=== PATIENT | female | born 1955 | race Caucasian/White ===

== ENCOUNTER 2023-03-11 11:10 | Inpatient (IN) | payer OTHER ==
[~2023-03-11] VITALS: Ht 165.1 cm; Wt 79.5 kg
[2023-03-11] MEDS ORDERED: IPRATROPIUM BROM 0.5 MG/2.5ML INH SOL NEB ONE ×3 (11:30→12:30)
[2023-03-11] MEDS ORDERED: ALBUTEROL SULF 2.5 MG/0.5ML(0.5%) NEB SOLN NEB ONE ×3 (11:30→12:30)
[2023-03-11] MEDS ORDERED: DexAMETHasone SOD PHOS 10MG/1ML VIAL INJ IM ONE (11:45)
[2023-03-11] MEDS: MAGNESIUM SULFATE 1GM/100ML 100 ML IV SCH ×2 (12:09→12:56)
[2023-03-11 12:13] LABS: Basophils # (auto) 0 10 ^3/uL (0-0.2); Eosinophils # (auto) 0 10 ^3/uL (0-0.8); Hematocrit 53.4 % (36.0-46.0); Lymphocytes # (auto) 0.5 10 ^3/uL (0.4-5.4); Lymphocytes % (auto) 7.5 % (10.0-50.0); Monocytes # (auto) 0.9 10 ^3/uL (0-1.3)
[2023-03-11 12:17] LABS: Basophils % (auto) 0.2 % (0.0-2.0); Hemoglobin 16.3 g/dL (12.2-16.2); Mean Corpuscular Hemoglobin 28.7 pg (28.0-32.0); Mean Corpuscular Hgb Conc. 30.5 g/dL (32.0-36.0); Monocytes % (auto) 12.9 % (0.0-12.0); Neutrophils # (auto) 5.7 10 ^3/uL (1.6-8.6); Neutrophils % (auto) 79.4 % (37.0-80.0); Nucleated Red Blood Cells % 0.5 %; Red Blood Cells 5.68 10^6/uL (4.0-5.20); Red Cell Distribution Width 16.8 % (11.8-14.3); White Blood Cell 7.2 10^3/uL (4.4-10.8)
[2023-03-11] MEDS ORDERED: SODIUM CHLORIDE 0.9% 500 ML IV ONE (12:30)
[2023-03-11 12:32] LABS: Potassium 4.8 mmol/L (3.5-5.1)
[2023-03-11 12:40] LABS: Albumin 3.4 g/dL (3.4-5.0); BUN/Creatinine Ratio 29.7 (10.0-20.0); Bilirubin, Total 1.7 mg/dL (0.2-1.0); Calcium 8.6 mg/dL (8.5-10.1); Magnesium 2.8 mg/dL (1.6-2.6); Total Protein 6.3 g/dL (6.4-8.2)
[2023-03-11 13:01] LABS: INR 1.19 (0.9-1.15); Partial Thromboplastin Time 24.2 SEC (24.5-34.5)
[2023-03-11] MEDS ORDERED: METOPROLOL TARTRATE 1MG/1ML-5ML VIAL IV ONE ×2 (13:26→13:30)
[2023-03-11] MEDS ORDERED: ASPirin 81 mg TAB PO ONE (13:45)
[2023-03-11] MEDS ORDERED: levoFLOXacin 500MG 100 ML IV ONE (13:45)
[2023-03-11] MEDS ORDERED: dilTIAZem 25 MG/5 ML VIAL IV ONE ×3 (13:45→14:30)
[2023-03-11] MEDS ORDERED: ADENOSINE 6 MG/2 ML INJ IV ONE ×2 (14:15)
[2023-03-11] MEDS ORDERED: METOPROLOL SUCCINATE XL 50 MG TAB PO ONE (14:15)
[2023-03-11] MEDS ORDERED: FUROSEMIDE 40 MG/4 ML VIAL IV ONE (14:15)
[2023-03-11] MEDS ORDERED: IOHEXOL 350 MG/ML 100ML IJ ONE (14:26)
[2023-03-11] MEDS ORDERED: ENOXAPARIN SOD 80 MG/0.8ML SYRINGE SC ONE (14:45)
[2023-03-11] MEDS ORDERED: MORPHINE SULFATE INJ 2 MG/ml SYRG IV PRN ×2 (14:45→19:45)
[2023-03-11] MEDS ORDERED: NITROGLYCERIN 0.4 MG SL TAB SL PRN (14:45)
[2023-03-11] MEDS ORDERED: NICOTINE 14 MG/24HR TOPICAL PATCH TD ONE (14:45)
[2023-03-11] MEDS ORDERED: dilTIAZem 125mg/125ml BAG KIT 125 ML IV ONE (14:45)
[2023-03-11 15:05] LABS: Cholesterol 110 mg/dL (< 200)
[2023-03-11 15:07] LABS: HDL Cholesterol 43 mg/dL (40-59); LDL Cholesterol 51 mg/dL (< 100); Triglycerides 121 mg/dL (< 150)
[2023-03-11 15:33] LABS: Urine Bacteria FEW /hpf (None Seen); Urine Blood TRACE /uL (Negative); Urine Hyaline Cast FEW /lpf (0 - 2); Urine Mucus FEW (None Seen); Urine WBC 2 /hpf (0 - 5)
[2023-03-11 16:06] LABS: Alcohol, Urine < 3.0 mg/dL (0-10); Amphetamine Screen, Urine NEGATIVE (NEGATIVE); Barbiturate Scree,Urine NEGATIVE (NEGATIVE); Benzodiazephine Screen, Urine NEGATIVE (NEGATIVE); Cannabinoid Screen, Urine NEGATIVE (NEGATIVE); Cocaine Screen, Urine NEGATIVE (NEGATIVE); Opiate Scree,Urine NEGATIVE (NEGATIVE); Phencyclidine Screen, Urine NEGATIVE (NEGATIVE)
[2023-03-11] MEDS ORDERED: LORazepam 2MG/ML-1ML VIAL IV ONE ×2 (16:15→17:00)
[2023-03-11] MEDS ORDERED: AMIODARONE HCL 150 MG in D5W 5% 100 ML IV ONE (17:00)
[2023-03-11] MEDS ORDERED: AMIODARONE 450mg/250ml AE 250 ML IV SCH ×2 (17:15→23:15)
[2023-03-11] MEDS ORDERED: FLUMAZENIL 0.1 MG/ML INJ 10ML MDV IV ONE ×3 (17:33→18:30)
[2023-03-11] MEDS: FUROSEMIDE 20 MG/2 ML VIAL IV SCH (18:00)
[2023-03-11 21:00] VITALS: BP 106/73
[2023-03-11 22:07] VITALS: BP 95/63
[2023-03-11] MEDS ORDERED: LORazepam 2MG/ML-1ML VIAL IV PRN (22:15)
[2023-03-11] MEDS ORDERED: ACETAMINOPHEN 325 MG TAB PO PRN (22:15)
[2023-03-11] MEDS ORDERED: HYDROcodone-ACET 5/325MG TAB PO PRN (22:15)
[2023-03-11] MEDS ORDERED: DOCUSATE SOD 100 MG CAP PO PRN (22:15)
[2023-03-11] MEDS ORDERED: ONDANSETRON HCL 4 MG/2 ML VIAL IV PRN (22:15)
[2023-03-11 23:38] VITALS: BP 95/63
[2023-03-11] MEDS: METOPROLOL TARTRATE 25 MG TAB PO SCH (23:54)
[2023-03-11] MEDS: ENOXAPARIN SOD 80 MG/0.8ML SYRINGE SC SCH (23:56)
[2023-03-12] VITALS: BP 100/60
[2023-03-12 02:10] VITALS: BP 107/70
[2023-03-12 03:55] VITALS: BP 99/74
[2023-03-12] MEDS ORDERED: IBUPROFEN 600 MG TAB PO PRN (04:45)
[2023-03-12] MEDS: SODIUM CHLOR 0.9% PF (SALINE LOCK) 10ML VIAL/SYR IV SCH ×3 (06:17→22:47)
[2023-03-12 06:30] VITALS: BP 108/60
[2023-03-12] MEDS: FUROSEMIDE 20 MG/2 ML VIAL IV SCH ×2 (06:35→17:36)
[2023-03-12] MEDS: ENOXAPARIN SOD 80 MG/0.8ML SYRINGE SC SCH ×3 (07:57→22:52)
[2023-03-12] MEDS: FAMOTIDINE (10MG/ML) 2ML VL IV SCH (07:57)
[2023-03-12] MEDS: ASPirin 81 mg TAB PO SCH (07:57)
[2023-03-12] MEDS: METOPROLOL TARTRATE 25 MG TAB PO SCH ×2 (07:58→22:00)
[2023-03-12] MEDS: GENTAMICIN OPTH sol 0.3% 5ml EACHEYE SCH ×4 (09:45→22:55)
[2023-03-12] MEDS ORDERED: FUROSEMIDE 40 MG/4 ML VIAL IV ONE (10:30)
[2023-03-12 11:15] LABS: Basophils # (auto) 0 10 ^3/uL (0-0.2); Eosinophils # (auto) 0 10 ^3/uL (0-0.8); Monocytes # (auto) 1.5 10 ^3/uL (0-1.3); Nucleated Red Blood Cells % 1.5 %
[2023-03-12 11:16] LABS: Basophils % (auto) 0.2 % (0.0-2.0); Hematocrit 54.7 % (36.0-46.0); Hemoglobin 16.5 g/dL (12.2-16.2); Lymphocytes # (auto) 0.6 10 ^3/uL (0.4-5.4); Lymphocytes % (auto) 6.5 % (10.0-50.0); Mean Corpuscular Hemoglobin 28.9 pg (28.0-32.0); Mean Corpuscular Hgb Conc. 30.2 g/dL (32.0-36.0); Mean Corpuscular Volume 95.7 fL (80.0-100.0); Monocytes % (auto) 17.1 % (0.0-12.0); Neutrophils # (auto) 6.6 10 ^3/uL (1.6-8.6); Neutrophils % (auto) 76.2 % (37.0-80.0); Red Blood Cells 5.72 10^6/uL (4.0-5.20); Red Cell Distribution Width 17.1 % (11.8-14.3); White Blood Cell 8.6 10^3/uL (4.4-10.8)
[2023-03-12 12:19] LABS: Potassium 5.5 mmol/L (3.5-5.1)
[2023-03-12 12:20] LABS: Bilirubin, Total 1.6 mg/dL (0.2-1.0); Calcium 8.3 mg/dL (8.5-10.1)
[2023-03-12 12:21] LABS: Albumin 3.1 g/dL (3.4-5.0)
[2023-03-12] MEDS ORDERED: SODIUM ZIRCONIUM CYCL 10 GM PAK PO ONE (18:15)
[2023-03-12] MEDS ORDERED: DEXTROSE (50%) 50ML SYRG IV ONE (19:15)
[2023-03-12] MEDS ORDERED: SODIUM BICARBONATE 8.4 % INJ 50ML VIAL IV ONE ×2 (19:15→21:15)
[2023-03-12] MEDS ORDERED: CALCIUM GLUC 1,000mg/50ml-NS 50 ML IV ONE (19:15)
[2023-03-12] MEDS ORDERED: InsuLIN REG 1unit/0.01ml Soln (100units/ml) IV ONE (19:15)
[2023-03-13] MEDS: GENTAMICIN OPTH sol 0.3% 5ml EACHEYE SCH ×6 (02:15→22:01)
[2023-03-13] MEDS: SODIUM CHLOR 0.9% PF (SALINE LOCK) 10ML VIAL/SYR IV SCH ×3 (05:31→21:27)
[2023-03-13] MEDS: FUROSEMIDE 20 MG/2 ML VIAL IV SCH ×2 (05:37→18:21)
[2023-03-13 08:11] LABS: Basophils # (auto) 0 10 ^3/uL (0-0.2); Basophils % (auto) 0.3 % (0.0-2.0); Eosinophils # (auto) 0 10 ^3/uL (0-0.8); Hematocrit 49.9 % (36.0-46.0); Hemoglobin 15.7 g/dL (12.2-16.2); Lymphocytes # (auto) 0.6 10 ^3/uL (0.4-5.4); Mean Corpuscular Hemoglobin 29.4 pg (28.0-32.0); Mean Corpuscular Hgb Conc. 31.4 g/dL (32.0-36.0); Mean Corpuscular Volume 93.6 fL (80.0-100.0); Monocytes # (auto) 1.4 10 ^3/uL (0-1.3); Monocytes % (auto) 15.3 % (0.0-12.0); Neutrophils # (auto) 7.3 10 ^3/uL (1.6-8.6); Neutrophils % (auto) 78.4 % (37.0-80.0); Nucleated Red Blood Cells % 0.7 %; Red Blood Cells 5.33 10^6/uL (4.0-5.20); Red Cell Distribution Width 16.6 % (11.8-14.3); White Blood Cell 9.3 10^3/uL (4.4-10.8)
[2023-03-13 08:36] LABS: Calcium 7.8 mg/dL (8.5-10.1); Potassium 4.8 mmol/L (3.5-5.1)
[2023-03-13 08:40] LABS: BUN/Creatinine Ratio 26.9 (10.0-20.0); Total Protein 5.5 g/dL (6.4-8.2)
[2023-03-13] MEDS: ENOXAPARIN SOD 80 MG/0.8ML SYRINGE SC SCH ×2 (10:12→22:01)
[2023-03-13] MEDS: METOPROLOL TARTRATE 25 MG TAB PO SCH ×2 (10:14→22:08)
[2023-03-13] MEDS: ASPirin 81 mg TAB PO SCH (10:14)
[2023-03-13] MEDS: ACETYLCYSTEINE ORAL for CIN 20%(200MG/ML) 4ML PO SCH ×2 (10:15→22:06)
[2023-03-13] MEDS: FAMOTIDINE (10MG/ML) 2ML VL IV SCH (10:16)
[2023-03-13] MEDS: ALBUTEROL SULF 2.5 MG/0.5ML(0.5%) NEB SOLN NEB PRN (11:40)
[2023-03-13] MEDS: IPRATROPIUM BROM 0.5 MG/2.5ML INH SOL NEB PRN (11:40)
[2023-03-13] MEDS ORDERED: ACETYLCYSTEINE ORAL for CIN 20%(200MG/ML) 4ML PO SCH (22:00)
[2023-03-13] MEDS ORDERED: ACETYLCYSTEINE PO FOR APAP TOX 200 MG/ML ML ONE (22:05)
[2023-03-14] MEDS: GENTAMICIN OPTH sol 0.3% 5ml EACHEYE SCH ×6 (01:31→23:39)
[2023-03-14] MEDS: SODIUM CHLOR 0.9% PF (SALINE LOCK) 10ML VIAL/SYR IV SCH ×3 (05:53→23:37)
[2023-03-14] MEDS: FUROSEMIDE 20 MG/2 ML VIAL IV SCH ×2 (05:55→18:45)
[2023-03-14 06:14] LABS: Basophils # (auto) 0 10 ^3/uL (0-0.2); Basophils % (auto) 0.2 % (0.0-2.0); Eosinophils # (auto) 0 10 ^3/uL (0-0.8); Hematocrit 46.9 % (36.0-46.0); Lymphocytes # (auto) 0.5 10 ^3/uL (0.4-5.4); Lymphocytes % (auto) 5.6 % (10.0-50.0); Mean Corpuscular Hemoglobin 29.9 pg (28.0-32.0); Mean Corpuscular Hgb Conc. 31.9 g/dL (32.0-36.0); Mean Corpuscular Volume 93.7 fL (80.0-100.0); Monocytes # (auto) 1.2 10 ^3/uL (0-1.3); Monocytes % (auto) 14.2 % (0.0-12.0); Nucleated Red Blood Cells % 0.3 %; Red Blood Cells 5.01 10^6/uL (4.0-5.20); Red Cell Distribution Width 16.6 % (11.8-14.3); White Blood Cell 8.7 10^3/uL (4.4-10.8)
[2023-03-14 06:25] LABS: Potassium 4.2 mmol/L (3.5-5.1)
[2023-03-14 06:35] LABS: BUN/Creatinine Ratio 38.3 (10.0-20.0); Bilirubin, Total 0.8 mg/dL (0.2-1.0); Total Protein 5.4 g/dL (6.4-8.2)
[2023-03-14] MEDS: IPRATROPIUM BROM 0.5 MG/2.5ML INH SOL NEB PRN (06:42)
[2023-03-14] MEDS: ALBUTEROL SULF 2.5 MG/0.5ML(0.5%) NEB SOLN NEB PRN (06:42)
[2023-03-14] MEDS: FAMOTIDINE (10MG/ML) 2ML VL IV SCH (11:34)
[2023-03-14] MEDS: ENOXAPARIN SOD 80 MG/0.8ML SYRINGE SC SCH ×2 (11:35→23:36)
[2023-03-14] MEDS: BACITRACIN TOP OINT 1 UD PKG TOP SCH (11:35)
[2023-03-14] MEDS: ASPirin 81 mg TAB PO SCH (11:35)
[2023-03-14] MEDS: METOPROLOL TARTRATE 25 MG TAB PO SCH ×2 (11:38→23:37)
[2023-03-14] MEDS: ACETYLCYSTEINE ORAL for CIN 20%(200MG/ML) 4ML PO SCH ×2 (11:39→23:39)
[2023-03-14 18:00] VITALS: BP 122/77
[2023-03-14 20:00] VITALS: BP 136/77
[2023-03-14 21:51] VITALS: BP 140/55
[2023-03-14 22:30] VITALS: BP 98/65
[2023-03-14 23:00] VITALS: BP 122/68
[2023-03-14 23:41] VITALS: BP 122/68
[2023-03-15] VITALS (25 sets, daily range): BP systolic 73–152; BP diastolic 31–92
[2023-03-15] MEDS: GENTAMICIN OPTH sol 0.3% 5ml EACHEYE SCH ×6 (02:00→22:22)
[2023-03-15] MEDS: FUROSEMIDE 20 MG/2 ML VIAL IV SCH ×2 (05:53→18:00)
[2023-03-15] MEDS: SODIUM CHLOR 0.9% PF (SALINE LOCK) 10ML VIAL/SYR IV SCH ×3 (05:54→22:22)
[2023-03-15] MEDS: METOPROLOL TARTRATE 25 MG TAB PO SCH ×2 (09:30→22:00)
[2023-03-15] MEDS: ENOXAPARIN SOD 80 MG/0.8ML SYRINGE SC SCH ×2 (09:31→22:00)
[2023-03-15] MEDS: ASPirin 81 mg TAB PO SCH (09:32)
[2023-03-15] MEDS: BACITRACIN TOP OINT 1 UD PKG TOP SCH (09:32)
[2023-03-15] MEDS: FAMOTIDINE (10MG/ML) 2ML VL IV SCH (09:32)
[2023-03-15] MEDS ORDERED: PIPERACILLIN-TAZOB 3.375GM 100 ML IV ONE (10:45)
[2023-03-15] MEDS ORDERED: PANTOPRAZOLE 40 MG TAB PO ONE (14:45)
[2023-03-15] MEDS ORDERED: ALBUMIN 25% 100 ML IV ONE ×4 (15:15→23:30)
[2023-03-15] MEDS ORDERED: SODIUM CHLORIDE 0.9% 500 ML IV ONE (15:15)
[2023-03-15 16:45] LABS: BUN/Creatinine Ratio 23.4 (10.0-20.0); Calcium 7.9 mg/dL (8.5-10.1); Magnesium 2.2 mg/dL (1.6-2.6); Potassium 3.5 mmol/L (3.5-5.1)
[2023-03-15] MEDS: PIPERACILLIN-TAZOB 3.375GM 100 ML IV SCH (18:00)
[2023-03-15] MEDS: VASOPRESSIN 20 UNITS in SODIUM CHL 0.9% 99 ML IV SCH (18:36)
[2023-03-15] MEDS ORDERED: NOREPINEPHRINE 8 MG/250ML KIT 250 ML IV ONE (19:52)
[2023-03-15] MEDS ORDERED: NOREPINEPHRINE 8 MG/250ML KIT 250 ML IV SCH (20:00)
[2023-03-15] MEDS ORDERED: PHENYLEPHRINE IV 250 ML IV ONE (20:45)
[2023-03-15] MEDS: NOREPINEPHRINE 8 MG/250ML KIT 250 ML IV SCH (20:45)
[2023-03-15] MEDS ORDERED: ALBUMIN 5% 250 ML IV ONE ×2 (20:55→21:00)
[2023-03-15] MEDS: PHENYLEPHRINE IV 250 ML IV SCH (21:00)
[2023-03-15 21:37] LABS: Hematocrit 20.9 % (36.0-46.0)
[2023-03-15 21:42] LABS: Hemoglobin 6.2 g/dL (12.2-16.2)
[2023-03-15] MEDS ORDERED: DOPamine 1600MCG/ML D5W 250 ML IV ONE (22:44)
[2023-03-15] MEDS ORDERED: DEXTROSE 50% SYRINGE 50 ML IV ONE (23:12)
[2023-03-15] MEDS ORDERED: DEXTROSE (50%) 50ML SYRG IV ONE (23:15)
[2023-03-15 23:25] LABS: Hematocrit 14.4 % (36.0-46.0); Mean Corpuscular Hgb Conc. 28.5 g/dL (32.0-36.0); Mean Corpuscular Volume 105.3 fL (80.0-100.0)
[2023-03-15 23:27] LABS: Red Blood Cells 1.36 10^6/uL (4.0-5.20); Red Cell Distribution Width 17.4 % (11.8-14.3); White Blood Cell 8.6 10^3/uL (4.4-10.8)
[2023-03-15 23:34] LABS: INR 2.97 (0.9-1.15)
[2023-03-15 23:39] LABS: Hemoglobin 4.1 g/dL (12.2-16.2)
[2023-03-15 23:40] LABS: Albumin 2.2 g/dL (3.4-5.0); Calcium 10.8 mg/dL (8.5-10.1)
[2023-03-15 23:42] LABS: Basophils % (manual) 0 (0.0-2.0); Blast Cells 0; Eosinophils % (manual) 0 (0-7); Metamyelocytes % 0; Myelocytes % 0; Promyelocytes % 0; Reactive Lymphocytes 0
[2023-03-15 23:46] LABS: Potassium 5.9 mmol/L (3.5-5.1)
[2023-03-15 23:58] LABS: BUN/Creatinine Ratio 19.4 (10.0-20.0); Bilirubin, Total 3.2 mg/dL (0.2-1.0); Total Protein 3.6 g/dL (6.4-8.2)
[2023-03-16] VITALS (98 sets, daily range): BP systolic 38–178; BP diastolic 15–141
[2023-03-16] MEDS ORDERED: SODIUM BICARBONATE 8.4 % INJ 50ML VIAL IV ONE ×2 (00:30→01:00)
[2023-03-16] MEDS ORDERED: SODIUM BICARBONATE 8.4% INJ 50ML SYRINGE ONE (00:30)
[2023-03-16 00:52] LABS: Band Neutrophils % (manual) 3; Lymphocytes % (manual) 9 (10.0-50.0); Monocytes % (manual) 11 (0-12)
[2023-03-16] MEDS ORDERED: InsuLIN REG 1unit/0.01ml Soln (100units/ml) IV ONE (01:00)
[2023-03-16] MEDS ORDERED: FUROSEMIDE 20 MG/2 ML VIAL IV ONE (01:00)
[2023-03-16] MEDS ORDERED: DEXTROSE (50%) 50ML SYRG IV ONE ×2 (01:00→08:30)
[2023-03-16] MEDS: NOREPINEPHRINE 8 MG/250ML KIT 250 ML IV SCH ×2 (01:00→12:50)
[2023-03-16] MEDS ORDERED: SODIUM ZIRCONIUM CYCL 10 GM PAK PO ONE (01:00)
[2023-03-16] MEDS: PHENYLEPHRINE IV 250 ML IV SCH ×5 (01:30→21:40)
[2023-03-16] MEDS: VASOPRESSIN 20 UNITS in SODIUM CHL 0.9% 99 ML IV SCH ×3 (01:30→16:52)
[2023-03-16] MEDS: PIPERACILLIN-TAZOB 3.375GM 100 ML IV SCH ×3 (01:42→18:45)
[2023-03-16] MEDS: GENTAMICIN OPTH sol 0.3% 5ml EACHEYE SCH ×6 (01:57→20:15)
[2023-03-16] MEDS ORDERED: EPINEPHrine HCL 250 ML IV SCH (04:00)
[2023-03-16] MEDS ORDERED: EPINEPHrine HCL 250 ML IV ONE (04:01)
[2023-03-16] MEDS: SODIUM CHLOR 0.9% PF (SALINE LOCK) 10ML VIAL/SYR IV SCH ×3 (06:00→20:16)
[2023-03-16] MEDS: FUROSEMIDE 20 MG/2 ML VIAL IV SCH ×2 (06:00→18:00)
[2023-03-16 07:52] LABS: Albumin 2.3 g/dL (3.4-5.0); Calcium 6.8 mg/dL (8.5-10.1); Potassium 4.7 mmol/L (3.5-5.1); Uric Acid 14.5 mg/dL (2.6-6.0)
[2023-03-16 07:58] LABS: Hematocrit 24.6 % (36.0-46.0); Hemoglobin 7.4 g/dL (12.2-16.2); Mean Corpuscular Hemoglobin 30.6 pg (28.0-32.0); Red Blood Cells 2.41 10^6/uL (4.0-5.20); Red Cell Distribution Width 16.6 % (11.8-14.3); White Blood Cell 22.2 10^3/uL (4.4-10.8)
[2023-03-16 08:07] LABS: Basophils % (manual) 0 (0.0-2.0); Blast Cells 0; Promyelocytes % 0; Reactive Lymphocytes 0
[2023-03-16 08:14] LABS: BUN/Creatinine Ratio 18.5 (10.0-20.0); Bilirubin, Total 4.4 mg/dL (0.2-1.0); Phosphorus 7.6 mg/dL (2.5-4.90); Total Protein 3.9 g/dL (6.4-8.2)
[2023-03-16] MEDS ORDERED: DEXTROSE 10% 1,000 ML IV SCH ×2 (08:30→13:00)
[2023-03-16] MEDS ORDERED: DEXTROSE 50% SYRINGE 100 ML IV ONE (08:32)
[2023-03-16] MEDS ORDERED: DEXTROSE (50%) 50ML SYRG IV PRN (08:45)
[2023-03-16 08:58] LABS: Band Neutrophils % (manual) 10; Eosinophils % (manual) 1 (0-7); Lymphocytes % (manual) 6 (10.0-50.0); Metamyelocytes % 2; Monocytes % (manual) 6 (0-12); Myelocytes % 3
[2023-03-16] MEDS ORDERED: PANTOPRAZOLE 40 MG TAB PO SCH (10:00)
[2023-03-16] MEDS: BACITRACIN TOP OINT 1 UD PKG TOP SCH (10:08)
[2023-03-16] MEDS: ACCU-CHEK COMFORT CURVE STRIP VI SCH ×3 (12:35→20:08)
[2023-03-16] MEDS ORDERED: EPINEPHrine HCL 1 MG/10 ML SYRG IV ONE (12:59)
[2023-03-16] MEDS ORDERED: SODIUM BICARBONATE 8.4% INJ 50ML SYRINGE IV ONE (12:59)
[2023-03-16 17:38] LABS: Partial Thromboplastin Time 50.4 SEC (24.5-34.5)
[2023-03-16 17:41] LABS: INR 5.73 (0.9-1.15)
[2023-03-16] MEDS ORDERED: PHYTONADIONE (VIT K)10 MG/ML 1ML VIAL SUBCUT ONE (19:00)
[2023-03-16 19:03] LABS: Red Blood Cells 1.25 10^6/uL (4.0-5.20); White Blood Cell 13.1 10^3/uL (4.4-10.8)
[2023-03-16 19:05] LABS: Hematocrit 18.7 % (36.0-46.0); Mean Corpuscular Hemoglobin 30.4 pg (28.0-32.0); Mean Corpuscular Hgb Conc. 20.3 g/dL (32.0-36.0); Red Cell Distribution Width 19.1 % (11.8-14.3)
[2023-03-16 19:15] LABS: Hemoglobin 3.8 g/dL (12.2-16.2)
[2023-03-16] MEDS ORDERED: ATROPINE SULF 1 MG/10ml SYR IV PRN (19:30)
[2023-03-16 19:48] LABS: Basophils % (manual) 0 (0.0-2.0); Blast Cells 0; Eosinophils % (manual) 0 (0-7); Metamyelocytes % 0; Myelocytes % 0; Promyelocytes % 0; Reactive Lymphocytes 0
[2023-03-16 19:50] LABS: Band Neutrophils % (manual) 15; Lymphocytes % (manual) 21 (10.0-50.0); Monocytes % (manual) 1 (0-12)
== END 2023-03-17 02:50 | DRG 871 ==
LOC: EDBD 11:10 → ER 11:10 → TELE 22:22 → ICU CENTRL 03-14 21:09 → TELE-WESTW 03-14 22:40 → DOU IN ICU 03-15 18:15 → ICU CENTRL 03-15 22:00
PROVIDERS: ADMIT Nurse Practitioner Family; ATTEND Internal Medicine
PROC: 5A09357 Assistance with Respiratory Ventilation, Less than 24 Consecutive Hours, Continuous Positive Airway Pressure (ICD-10-PCS; 2023-03-11)
PROC: 05HF33Z Insertion of Infusion Device into Left Cephalic Vein, Percutaneous Approach (ICD-10-PCS; 2023-03-13)
PROC: B54NZZA Ultrasonography of Left Upper Extremity Veins, Guidance (ICD-10-PCS; 2023-03-13)
PROC: 5A09357 Assistance with Respiratory Ventilation, Less than 24 Consecutive Hours, Continuous Positive Airway Pressure (ICD-10-PCS; 2023-03-14)
PROC: 5A1935Z Respiratory Ventilation, Less than 24 Consecutive Hours (ICD-10-PCS; principal; 2023-03-16)
PROC: 0BH17EZ Insertion of Endotracheal Airway into Trachea, Via Natural or Artificial Opening (ICD-10-PCS; 2023-03-16)
PROC: 5A12012 Performance of Cardiac Output, Single, Manual (ICD-10-PCS; 2023-03-16)
PROC: 30233K1 Transfusion of Nonautologous Frozen Plasma into Peripheral Vein, Percutaneous Approach (ICD-10-PCS; 2023-03-16)
PROC: 30233N1 Transfusion of Nonautologous Red Blood Cells into Peripheral Vein, Percutaneous Approach (ICD-10-PCS; 2023-03-16)
DX: A41.9 Sepsis, unspecified organism (principal); E43 Unspecified severe protein-calorie malnutrition; G92.8 Other toxic encephalopathy; I21.4 Non-ST elevation (NSTEMI) myocardial infarction; J96.21 Acute and chronic respiratory failure with hypoxia; J96.22 Acute and chronic respiratory failure with hypercapnia; I50.43 Acute on chronic combined systolic (congestive) and diastolic (congestive) heart failure; J18.9 Pneumonia, unspecified organism; R65.21 Severe sepsis with septic shock; K72.00 Acute and subacute hepatic failure without coma; I47.1 Supraventricular tachycardia; I48.92 Unspecified atrial flutter; J44.1 Chronic obstructive pulmonary disease with (acute) exacerbation; E87.4 Mixed disorder of acid-base balance; G93.1 Anoxic brain damage, not elsewhere classified; J44.0 Chronic obstructive pulmonary disease with (acute) lower respiratory infection; N17.9 Acute kidney failure, unspecified; D68.9 Coagulation defect, unspecified; E87.0 Hyperosmolality and hypernatremia; I13.0 Hypertensive heart and chronic kidney disease with heart failure and stage 1 through stage 4 chronic kidney disease, or unspecified chronic kidney disease; Z66 Do not resuscitate; I46.9 Cardiac arrest, cause unspecified; I16.0 Hypertensive urgency; N18.31 Chronic kidney disease, stage 3a; F10.10 Alcohol abuse, uncomplicated; E66.9 Obesity, unspecified; F17.210 Nicotine dependence, cigarettes, uncomplicated; E87.5 Hyperkalemia; E78.5 Hyperlipidemia, unspecified; E86.0 Dehydration; R31.0 Gross hematuria; D64.9 Anemia, unspecified; E16.2 Hypoglycemia, unspecified; I48.0 Paroxysmal atrial fibrillation; Z99.81 Dependence on supplemental oxygen; Z68.29 Body mass index [BMI] 29.0-29.9, adult
CPT/HCPCS: 36415; 36600; 70450; 71045; 71275; 74018; 80048; 80053; 80061; 80307; 80320; 81001; 82140; 82805; 82962; 83036; 83605; 83735; 83880; 84100; 84443; 84484; 84550; 85007; 85014; 85018; 85025; 85027; 85379; 85610; 85730; 86850; 86900; 86901; 86920; 87040; 87070; 87205; 93005; 93306; 94002; 94003; 94640; 94660; 95819; 96365; 96366; 96367; 96368; 96372; 96375; 96376; G0378; J0153; J0171; J1100; J1815; J1956; J2543; J3430; J3490; J7060; P9047